=== PATIENT | female | born 1975 | race Caucasian/White ===

== ENCOUNTER 2020-10-09 07:48 | Day surgery (SDC) | payer OTHER ==
[2020-10-06 10:19] LABS: BASOPHILS % (AUTO) 1 % (0-1); EOSINOPHILS % (AUTO) 1 % (1-7); LYMPHOCYTES % (AUTO) 25 % (22-44); MEAN CORPUSCULAR HEMOGLOBIN 30.1 pg (27.0-34.8); MEAN CORPUSCULAR HGB CONC 33.7 g/dL (32.4-35.8); MEAN PLATELET VOLUME 8.6 fL (7.4-10.4); MONOCYTES % (AUTO) 6 % (2-9); NEUTROPHILS % (AUTO) 68 % (42-75); PLATELET COUNT 220 x10^3/uL (130-400); RED BLOOD COUNT 4.44 x10^6/uL (3.82-5.3); RED CELL DISTRIBUTION WIDTH 13.4 % (9.6-15.2)
[2020-10-06 10:23] LABS: MD NO
[2020-10-06 10:26] LABS: ALBUMIN 3.6 g/dL (3.4-5.0); ANION GAP 6 mmol/L (5-15); CALCIUM 8.7 mg/dL (8.5-10.1); CHLORIDE 106 mmol/L (98-107)
[2020-10-06 10:27] LABS: INTERNATIONAL NORMALIZED RATIO 1.01 (0.93-1.1); PROTHROMBIN TIME 10.8 Seconds (9.6-11.5)
[2020-10-06 10:29] LABS: ALANINE AMINOTRANSFERASE 21 U/L (12-78); ALKALINE PHOSPHATASE 68 U/L (45-117); BILIRUBIN,TOTAL 0.4 mg/dL (0.2-1.0); CREATININE 0.88 mg/dL (0.55-1.02); TOTAL PROTEIN 7.8 g/dL (6.4-8.2)
[~2020-10-09] VITALS: Ht 162.6 cm; Wt 78.0 kg
[~2020-10-09 07:48] MED LIST: CHOL10003 PO; VITA1TAB19 PO
[2020-10-09] MEDS ORDERED: LACTATED RINGERS 1,000 ML IV SCH (08:30)
[2020-10-09] MEDS ORDERED: CHLORHEXIDINE 15 ML UDC MM ONE (08:30)
[2020-10-09 08:31] VITALS: BP 131/85
[2020-10-09] MEDS ORDERED: CHLORHEXIDINE 15 ML UDC ONE (08:36)
[2020-10-09 08:41] LABS: HCG UR SG 1.013 (1.003-1.030)
[2020-10-09] MEDS ORDERED: EPINEPHRINE 1 MG/ML, 1ML ONE (09:25)
[2020-10-09] MEDS ORDERED: BUPIVACAINE/PF 0.5% ONE (09:25)
[2020-10-09] MEDS ORDERED: MIDAZOLAM 1 MG/ML, 2ML ONE (10:04)
[2020-10-09] MEDS ORDERED: FENTANYL PF 100 MCG/2ML ONE (10:04)
[2020-10-09] MEDS ORDERED: ACETAMINOPHEN 500 MG TABLET ONE (10:04)
[2020-10-09] MEDS ORDERED: ONDANSETRON ODT 8 MG ONE (10:05)
[2020-10-09] MEDS ORDERED: ONDANSETRON ODT 8 MG PO ONE (10:30)
[2020-10-09] MEDS ORDERED: ACETAMINOPHEN 500 MG TABLET PO ONE (10:30)
[2020-10-09] MEDS ORDERED: PROPOFOL 10 MG/ML, 20ML ONE (10:43)
[2020-10-09] MEDS ORDERED: CEFAZOLIN 1,000 MG ONE (10:43)
[2020-10-09] MEDS ORDERED: OXYcodone 5 MG/5 ML ORAL.SOL UDC PO PRN (11:00)
[2020-10-09] MEDS ORDERED: DIPHENHYDRAMINE 50 MG/ML, 1ML IVPush PRN (11:00)
[2020-10-09] MEDS ORDERED: LABETALOL 5MG/ML, 20ML IV PRN (11:00)
[2020-10-09] MEDS ORDERED: MEPERIDINE/PF 25MG/0.5ML IVPush PRN (11:00)
[2020-10-09] MEDS ORDERED: hydrALAzine 20 MG/ML, 1ML IV PRN (11:00)
[2020-10-09] MEDS ORDERED: ONDANSETRON 2MG/ML, 2ML IVPush PRN (11:00)
[2020-10-09] MEDS ORDERED: HYDROmorphone 1 MG/ML, 1ML INJ IVPush PRN (11:00)
[2020-10-09] MEDS ORDERED: FENTANYL PF 100 MCG/2ML IV PRN (11:00)
[2020-10-09] MEDS ORDERED: DIAZEPAM 5 MG/ML, 2ML IVPush PRN (11:00)
[2020-10-09] MEDS ORDERED: PROMETHAZINE 25 MG/ML, 1ML IVPush PRN (11:00)
[2020-10-09] MEDS ORDERED: HYDR-1067 PO (11:48)
[2020-10-09] MEDS ORDERED: KETOROLAC 30 MG/1 ML ONE (11:49)
[2020-10-09] MEDS ORDERED: KETOROLAC 30 MG/1 ML IVPush ONE (12:00)
== END 2020-10-09 13:15 | disposition home or self-care (01) ==
LOC: OUT 07:48 → EDSTATUS 10:30 → OUT 13:15
PROVIDERS: ATTEND Surgery
DX: C43.72 Malignant melanoma of left lower limb, including hip (principal); G43.909 Migraine, unspecified, not intractable, without status migrainosus; Z79.899 Other long term (current) drug therapy; Z20.822 Contact with and (suspected) exposure to COVID-19; Z98.890 Other specified postprocedural states
CPT/HCPCS: 14020; 36415; 38531; 78195; 80053; 81025; 85025; 85610; 88307; 88341; 88342; 93005; A9541; J0171; J0690; J1885; J2250; J2704; J3010; J7120; Q0162; U0003